=== PATIENT | female | born 2000 | race African-American/Black ===

== ENCOUNTER 2022-06-30 01:31 | Emergency (ER) | payer OTHER, SELFPAY ==
[2022-06-30 01:38] VITALS: BP 130/90; PULSE 68; RESP 18; TEMP 37.6; O2SAT 100
--- NOTE | 2022-06-30 01:47 | ED.GENADULT ---
HPI - General Adult General Chief complaint: Unspecified Stated complaint: ABD & VAG PAIN History of Present Illness HPI narrative: Patient is a 21-year-old female who presents ER with concerns for possible STD. Patient had a 1 night stand 4 days ago and now she is concerned she could have an infection. No change in vaginal discharge. No pelvic pain. No vaginal bleeding. She is without urinary frequency urgency or dysuria. No fevers or chills or sweats. She does not have a wire machine cutter nor a PCP. Review of Systems Review of Systems: All systems reviewed & are unremarkable except as noted in HPI and below Constitutional: Constitutional: Denies chills and Denies fever(s) Gastrointestinal: Gastrointestinal: Denies abdominal pain, Denies nausea and Denies vomiting Genitourinary: Genitourinary: Denies abnormal vaginal bleeding, Denies nocturia, Denies dysuria, Denies pelvic pain and Denies vaginal discharge PMF Past Medical History Medical History (Updated 06/30/22 @ 03:38 by Ko Garcia MD) Healthy female adult Surgical History Surgical History (Updated 06/30/22 @ 01:49 by Ko Garcia MD) No history of previous surgery Social History Social History (Updated 06/30/22 @ 01:49 by Ko Garcia MD) Smoking status: Never smoker Exam Narrative: GENERAL: Well-appearing, well-nourished, and in no acute distress. HEAD: Normocephalic, atraumatic. CHEST: Clear to auscultation. No respiratory distress. HEART: Regular rate and rhythm. Normal peripheral pulses. ABDOMEN: Soft, nontender, nondistended. : Normal external genitalia, scant vaginal discharge, normal-appearing cervix without tenderness. No vaginal bleeding. EXTREMITIES: Normal range of motion. No edema. SKIN: Warm, dry, no rash. NEURO: Alert and oriented x3. PSYCH: Normal mood and affect. Course Course Emergency Course: Patient informed of results. She does not wish to receive ceftriaxone or doxycycline at this time. We will give her Tiara follow-up and she is also been taught how to access her MyChart for her results. Vital Signs Vital signs: Vital Signs Temperature 99.6 F 06/30/22 01:38 Pulse Rate 68 06/30/22 01:38 Respiratory Rate 18 06/30/22 01:38 Blood Pressure 130/90 06/30/22 01:38 Pulse Oximetry 100 06/30/22 01:38 Temperature 99.6 F 06/30/22 01:38 Pulse Rate 68 06/30/22 01:38 Respiratory Rate 18 06/30/22 01:38 Blood Pressure 130/90 06/30/22 01:38 Pulse Oximetry 100 06/30/22 01:38 Medical Decision Making Vital Signs Vital Signs: Vital Signs Temperature 99.6 F 06/30/22 01:38 Pulse Rate 68 06/30/22 01:38 Respiratory Rate 18 06/30/22 01:38 Blood Pressure 130/90 06/30/22 01:38 Pulse Oximetry 100 06/30/22 01:38 Temperature 99.6 F 06/30/22 01:38 Pulse Rate 68 06/30/22 01:38 Respiratory Rate 18 06/30/22 01:38 Blood Pressure 130/90 06/30/22 01:38 Pulse Oximetry 100 06/30/22 01:38 Lab Data Labs: Lab Results 06/30/22 06/30/22 06/30/22 Range/Units 02:07 02:07 02:07 Urine Color Yellow (Yellow) Urine Appearance Clear (Clear) Urine pH 5.5 (5.0-9.0) Ur Specific [place] 1.020 (1.001-1.035) Urine Protein Negative (Negative) mg/dL Urine Glucose (UA) Negative (Negative) mg/dL Urine Ketones Trace (Negative) mg/dL Ur Blood (Man) Negative (Negative) Urine Nitrate Negative (Negative) Urine Bilirubin 1+ H (Negative) Urine Urobilinogen 0.2 (<2.0) mg/dL Leukocyte Esterase Rfl Negative (Negative) FATMATA/UL Urine RBC 3-5 H (0-2) /hpf Urine WBC 4-6 H /hpf Ur Squamous Epith Cells Moderate H (Few) /hpf Urine Bacteria Trace /hpf Urine Mucus Few H /lpf C.trachomatis RNA (TMA) Pending N.gonorrhoeae RNA (TMA) Pending Trichomonas Direct ID Negative (Negative) UCG Bedside Result Negative R
[2022-06-30 02:16] LABS: Appearance Urine Clear (Clear); Bilirubin Urine 1+ (Negative); Blood Urine Negative (Negative); Color Urine Yellow (Yellow); Glucose Urine UA Negative (Negative); Ketones Urine Trace mg/dL (Negative); Leukocyte Esterase Ur Negative LEU/UL (Negative); Nitrate Urine Negative (Negative); Protein Urine Negative (Negative); Urobilinogen Urine 0.2 mg/dL (<2.0); pH Urine 5.5 (5.0-9.0)
[2022-06-30 02:31] LABS: Add Urine Microscopic? YES
[2022-06-30 02:32] LABS: Bacteria Urine Trace /hpf; Mucus Urine Few /lpf; Squamous Epithelial Cell Urine Moderate /hpf (Few)
== END 2022-06-30 04:11 | disposition home or self-care (01) ==
PROVIDERS: Emergency Provider Emergency Medicine
DX: Z11.3 Encounter for screening for infections with a predominantly sexual mode of transmission (principal)
CPT/HCPCS: 81001; 81025; 87070; 87147; 87491; 87591; 87808; 99284